=== PATIENT | female | born 1990 | race African-American/Black ===

== ENCOUNTER 2020-07-31 03:09 | Emergency (ER) | payer MEDICAID ==
[~2020-07-31] VITALS: Ht 167.6 cm; Wt 79.8 kg
[2020-07-31 03:09] VITALS: BP 109/75
--- NOTE | 2020-07-31 03:09 | NUR ---
ERMD AT BEDSIDE.
--- NOTE | 2020-07-31 03:10 | NUR ---
LABS COLLECTED AND WALKED TO LAB.
--- NOTE | 2020-07-31 03:10 | NUR ---
XRAY AT BEDSIDE.
--- NOTE | 2020-07-31 03:12 | NUR ---
[employer] AT BEDSIDE.
[2020-07-31] MEDS ORDERED: MORPHINE SULFATE 4 MG/ML SYR IVP ONE (03:20)
[2020-07-31] MEDS ORDERED: ceFAZolin 1,000 MG VIAL IM ONE (03:20)
[2020-07-31] MEDS ORDERED: ONDANSETRON 4 MG/2 ML VIAL IVP ONE (03:20)
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
[2020-07-31] MEDS ORDERED: NACL 0.9% 1,000 ML IV ONE ×2 (03:30)
--- NOTE | 2020-07-31 03:30 | NUR ---
s/w EBENEZER covington at [facility] to alert them of pt transfer for higher level of care.
--- NOTE | 2020-07-31 03:31 | NUR ---
SEE COMPLETE ASSESSMENT FOR INITIAL ASSESSMENT.
[2020-07-31 03:32] LABS: BASOPHILS # (AUTO) 0.1 K/uL (0.00-0.22); BASOPHILS % (AUTO) 0.6 % (0.0-2.0); EOSINOPHILS # (AUTO) 0.1 K/uL (0-0.4); EOSINOPHILS % (AUTO) 1.1 % (0.0-4.0); HEMATOCRIT 38.7 % (36-48); HEMOGLOBIN 12.9 g/dL (12.0-16.0); LYMPHOCYTES # (AUTO) 2.9 K/uL (2.5-16.5); LYMPHOCYTES % (AUTO) 21.6 % (20.5-51.1); MEAN CORPUSCULAR HEMOGLOBIN 30 pg (27-31); MEAN CORPUSCULAR HGB CONC 33 g/dL (33-37); MEAN CORPUSCULAR VOLUME 90.1 fL (80-94); MONOCYTES # (AUTO) 1.3 K/uL (0.8-1.0); MONOCYTES % (AUTO) 9.6 % (1.7-9.3); NEUTROPHILS % (AUTO) 67.1 % (42.2-75.2); PLATELET COUNT (AUTO) 387 K/uL (140-450); RED BLOOD CELL COUNT(AUTO) 4.29 MIL/uL (4.20-5.40); RED CELL DISTRIBUTION WIDTH 14.3 % (11.6-13.7); WHITE BLOOD COUNT (AUTO) 13.4 K/uL (4.8-10.8)
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
[2020-07-31 03:40] VITALS: BP 142/88
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
[2020-07-31 03:46] LABS: ALBUMIN 4.1 g/dL (3.4-5.0); ANION GAP 13.4 (8-16); CARBON DIOXIDE 26.2 mmol/L (21-32); POTASSIUM 3.6 mmol/L (3.5-5.1); TOTAL BILIRUBIN 0.2 mg/dL (0.0-1.0)
== END 2020-07-31 03:40 | disposition short-term general hospital (02) ==
LOC: MED 03:09
DX: S21.4 Open wound of back wall of thorax with penetration into thoracic cavity (principal); W34.09XA Accidental discharge from other specified firearms, initial encounter; Y93.89 Activity, other specified; Y92.89 Other specified places as the place of occurrence of the external cause; Y99.8 Other external cause status
CPT/HCPCS: 36415; 71046; 80053; 84702; 85025; 86900; 86901; 90471; 90715; 96374; 96375; 99291; J2270; J2405; Q0092; J0690; J7030